=== PATIENT | female | born 1940 | race Caucasian/White ===

== ENCOUNTER 2016-10-08 18:09 | Emergency (ER) | payer MEDICARE ==
[2016-10-08] MEDS ORDERED: Diltiazem 25 MG/5 ML SDV IVPUSH ONE ×3 (19:32→21:25)
[2016-10-08] MEDS: Sodium Chloride 0.9% 10 ML Syringe FLUSH PRN ×2 (19:56→20:27)
[2016-10-08] MEDS ORDERED: Diltiazem 100 MG in Sodium Chloride 0.9% 100 ML IV SCH (20:30)
[2016-10-08 21:53] VITALS: BP 145/78
[2016-10-08] MEDS ORDERED: Potassium Chloride 10% 20 MEQ/15 ML Soln 15 ML UD Cup ONE (22:01)
--- NOTE | 2016-10-08 22:10 | EDM.PDOC ---
ED HPI NEURO - General Chief Complaint: Neuro Symptoms/Deficits Stated Complaint: DIZZINESS VIA [place] Time Seen by Provider: 10/08/16 19:18 Source: Reports: Patient History Limitations: Reports: No limitations - History of Present Illness INITIAL COMMENTS - FREE TEXT/NARRATIVE: Came in complaining of dizziness. This is been going on for about 3 days. She has actually fallen a couple of times. It seems like a syncope type of episode when she stands. She also noted that earlier today she felt a sudden pop in the back of her head and then began feeling really dizzy after that. She said sometimes her arms legs and now get but that's been going on a long time she had blood work last week her Dr. Mosqueda on since then Synthroid but all of those tests were okay. She denies any history of any type of of cardiac problems other than an occasional irregular heart rate. She denies any chest pain and denies any kind of palpitations. She did note that she's had a low potassium in the past - Related Data Allergies/ADRs: Allergies Allergy/AdvReac Type Severity Reaction Status Date / Time No Known Allergies Allergy Verified 10/16/15 09:10 Home Meds: Home Meds Aspirin [Adult Low Dose Aspirin EC] 81 mg PO DAILY 08/31/13 [History] Chlorthalidone 50 mg PO DAILY 08/31/13 [History] Cholecalciferol (Vitamin D3) [Vitamin D3] 2,000 units PO DAILY 08/31/13 [History ] Levothyroxine [Synthroid] 50 mcg PO ACBRK 08/31/13 [History] [place]-3 Fatty Acids [Fish Oil] 500 mg PO DAILY 08/31/13 [History] Omeprazole Magnesium 20 mg PO ASDIRECTED PRN 08/31/13 [History] Hydrocodone/Acetaminophen [Hydrocodon-Acetaminophen 5-325] 1 tab PO Q4H PRN 02/21 [History] Potassium Chloride 20 meq PO DAILY 10/14/15 [History] Past Medical History HEENT History: Reports: Cataract, Impaired vision Cardiovascular History: Reports: Hypertension, SOB on exertion Gastrointestinal History: Reports: Bowel obstruction, Cholelithiasis, Chronic constipation, Colon polyp, Gastritis, GERD, Hemorrhoids, Irritable bowel syndrome, Pancreatitis [employer] History: Reports: Dysfunctional uterine bleeding, Fibroids, Musculoskeletal History: Reports: Arthritis, Back pain, chronic, Neck pain, chronic, Osteoarthritis Endocrine/Metabolic History: Reports: Hypothyroidism, Vitamin D deficiency Hematologic History: Reports: Blood transfusion(s) - Infectious Disease History Infectious Disease History: Reports: Chicken pox, Measles, Mumps - Past Surgical History Head Surgeries/Procedures: Reports: None HEENT Surgical History: Reports: Tonsillectomy Cardiovascular Surgical History: Reports: None GI Surgical History: Reports: Cholecystectomy, Colonoscopy, Hernia, abdominal, Polypectomy Female Surgical History: Reports: Breast biopsy, D&C, Salpingo-oophorectomy, Tubal ligation Endocrine Surgical History: Reports: None Musculoskeletal Surgical History: Reports: Shoulder surgery Oncologic Surgical History: Reports: Biopsy of breast Dermatological Surgical History: Reports: Skin biopsy Social & Family History - Tobacco Use Smoking Status *Q: Never Smoker Years of Tobacco use: 50 Packs/Tins Daily: 1.5 Used Tobacco, but Quit: Yes Month Tobacco Last Used: JULY 2013 Second Hand Smoke Exposure: No - Caffeine Use Caffeine Use: Reports: None - Alcohol Use Days Per Week of Alcohol Use: 0 - Recreational Drug Use Recreational Drug Use: No ED ROS GENERAL - Review of Systems Review Of Systems: ROS reveals no pertinent complaints other than HPI. Constitutional: Reports: no symptoms HEENT: Reports: No symptoms, Vertigo Cardiovascular: Reports: No symptoms Endocrine: Reports: no symptoms GI/Abdominal: Reports: No symptoms : Reports: no symptoms Musculoskeletal: Reports: no symptoms Skin: Reports: no symptoms Neurological: Reports: dizziness Psychiatric: Reports: No symptoms Immunologic: Reports: no symptoms ED EXAM, NEURO - Physical Exam Exam: See Below Exam Limited By: No limitations General Appearance: alert, WD/WN, no apparent distress Eye Exam: bilateral eye: EOMI, PERRL Ears: normal external exam, normal TMs Nose: normal inspection, nasal flaring Throat/Mouth: Normal oropharynx Head Exam: atraumatic Neck: normal inspection Respiratory/Chest: lungs clear Cardiovascular: tachycardia, irregularly irregular GI/Abdominal: normal bowel sounds, soft, non tender Neurological: alert, normal mood/affect, normal dorsiflexion, CN II-XII intact, normal plantar flexion, normal reflexes, no motor/sensory deficits, oriented x 3 Back Exam: normal inspection Extremities: normal inspection Psychiatric: normal affect Skin Exam: Warm, Dry Course - Vital Signs Last Recorded V/S: Last Vital Signs Temp 37.5 C 10/08/16 21:52 Pulse 122 H 10/08/16 21:52 Resp 16 10/08/16 21:52 BP 145/78 H 10/08/16 21:52 Pulse Ox 93 L 10/08/16 21:52 - Orders/Labs/Meds Orders: Active Orders 24 hr Category Date Time Status EKG Documentation Completion [RC] ASDIRECTED Care 10/08/16 19:30 Active Chest 1V Frontal [CR] Urgent Exams 10/08/16 21:35 Taken Head wo Cont [CT] Stat Exams 10/08/16 19:29 Taken Diltiazem [Cardizem] 100 mg Med 10/08/16 20:30 Active Sodium Chloride 0.9% [Normal Saline] 100 ml IV TITRATE Potassium Chloride [Potassium Chloride Solution] Med 10/09/16 21:56 Once 40 meq PO ONETIME ONE Sodium Chloride 0.9% [Saline Flush] Med 10/08/16 19:29 Active 10 ml FLUSH ASDIRECTED PRN Saline Lock Insert [OM.PC] Urgent Oth 10/08/16 19:29 Ordered EKG 12 Lead [EK] Urgent Ther 10/08/16 19:29 Ordered Medication Orders Diltiazem HCl 100 mg/ Sodium (Chloride) 100 mls @ 5 mls/hr IV TITRATE KELLEY; 5 MG /HR PRN Reason: Protocol Last Admin: 10/08/16 20:39 Dose: 5 mg/hr, 5 mls/hr Potassium Chloride (Potassium Chloride Solution) 40 meq PO ONETIME ONE Stop: 10/09/16 21:57 Sodium Chloride (Saline Flush) 10 ml FLUSH ASDIRECTED PRN PRN Reason: Keep Vein Open Last Admin: 10/08/16 20:27 Dose: 10 ml Admin: 10/08/16 19:56 Dose: 10 ml Labs: Laboratory Tests 10/08/16 10/08/16 10/08/16 Range/Units 19:37 19:37 19:37 WBC 6.9 (4.5-11.0) K/uL RBC 5.31 (3.30-5.50) M/uL Hgb 16.2 H (12.0-15.0) g/dL Hct 48.0 (36.0-48.0) % MCV 90 (80-98) fL MCH 31 (27-31) pg MCHC 34 (32-36) % Plt Count 207 (150-400) K/uL Neut % (Auto) 67 H (36-66) % Lymph % (Auto) 23 L (24-44) % [place] % (Auto) 9 H (2-6) % Eos % (Auto) 1 L (2-4) % Baso % (Auto) 0 (0-1) % PT 10.6 (9.5-12.0) sec INR 1.00 (0.80-1.20) Sodium 143 (140-148) mmol/L Potassium 3.3 L (3.6-5.2) mmol/L Chloride 103 (100-108) mmol/L Carbon Dioxide 34 H (21-32) mmol/L Anion Gap 9.3 (5.0-14.0) mmol/L BUN 19 H (7-18) mg/dL Creatinine 0.9 (0.6-1.0) mg/dL Est Cr Clr Drug Dosing 42.35 mL/min Estimated GFR (MDRD) > 60 (>60) Glucose 106 (74-106) mg/dL Calcium 9.5 (8.5-10.1) mg/dL Total Bilirubin 0.4 (0.2-1.0) mg/dL AST 18 (15-37) U/L ALT 23 (12-78) U/L Alkaline Phosphatase 66 (46-116) U/L Troponin I (0.000-0.056) ng/mL Total Protein 7.7 (6.4-8.2) g/dL Albumin 4.1 (3.4-5.0) g/dL Globulin 3.6 H (2.3-3.5) g/dL Albumin/Globulin Ratio 1.1 L (1.2-2.2) 10/08/16 Range/Units 19:37 WBC (4.5-11.0) K/uL RBC (3.30-5.50) M/uL Hgb (12.0-15.0) g/dL Hct (36.0-48.0) % MCV (80-98) fL MCH (27-31) pg MCHC (32-36) % Plt Count (150-400) K/uL Neut % (Auto) (36-66) % Lymph % (Auto) (24-44) % [place] % (Auto) (2-6) % Eos % (Auto) (2-4) % Baso % (Auto) (0-1) % PT (9.5-12.0) sec INR (0.80-1.20) Sodium (140-148) mmol/L Potassium (3.6-5.2) mmol/L Chloride (100-108) mmol/L Carbon Dioxide (21-32) mmol/L Anion Gap (5.0-14.0) mmol/L BUN (7-18) mg/dL Creatinine (0.6-1.0) mg/dL Est Cr Clr Drug Dosing mL/min Estimated GFR (MDRD) (>60) Glucose (74-106) mg/dL Calcium (8.5-10.1) mg/dL Total Bilirubin (0.2-1.0) mg/dL AST (15-37) U/L ALT (12-78) U/L Alkaline Phosphatase (46-116) U/L Troponin I 0.287 H* (0.000-0.056) ng/mL Total Protein (6.4-8.2) g/dL Albumin (3.4-5.0) g/dL Globulin (2.3-3.5) g/dL Albumin/Globulin Ratio (1.2-2.2) Meds: Medications Generic Name Dose Route Start Last Admin Trade Name Freq PRN Reason Stop Dose Admin Diltiazem HCl 100 mg/ Sodium 100 mls @ 5 mls/hr 10/08/16 20:30 10/08/16 20:39 Chloride IV 5 mg/hr TITRATE KELLEY 5 mls/hr Protocol Administration 5 MG/HR Potassium Chloride 40 meq 10/09/16 21:56 Potassium Chloride Solution PO 10/09/16 21:57 ONETIME ONE Sodium Chloride 10 ml 10/08/16 19:29 10/08/16 20:27 Saline Flush FLUSH 10 ml ASDIRECTED PRN Administration Keep Vein Open Discontinued Medications Generic Name Dose Route Start Last Admin Trade Name Freq PRN Reason Stop Dose Admin Diltiazem HCl 15 mg 10/08/16 19:32 10/08/16 19:45 Diltiazem IVPUSH 10/08/16 19:33 15 mg NOW ONE Administration Diltiazem HCl 15 mg 10/08/16 20:16 10/08/16 20:19 Diltiazem IVPUSH 10/08/16 20:17 15 mg ONETIME ONE Administration Diltiazem HCl 15 mg 10/08/16 21:25 Diltiazem IVPUSH 10/08/16 21:26 ONETIME ONE - Radiology Interpretation Free Text/Narrative:: Head CT is normal. No evidence of any bleeding. Chest x-ray shows normal heart size there may be a little bit of atelectasis in the left base - Re-Assessments/Exams Free Text/Narrative Re-Assessment/Exam: 10/08/16 22:07 Monitor shows a rapid rhythm approximately 140-150 this appears to be atrial fibrillation. Occasionally she converts to a normal sinus rhythm briefly. At other times she converts to a sinus rhythm with bigeminy but this is transient and she goes right back into the A. fib and rapid ventricular response. An IV was established she was given a dose of 15 mg Cardizem but that didn't little therefore she was given a second 15 mg dose and that seemed to slow the heart rate down just a little bit. We started her on a Cardizem drip at 5 mg an hour. A CT scan of the head was done results were normal. Labs came back showing a troponin of 0.28. Also potassium 3.3. I spoke with Dr. Ortiz at [facility] and he accepted the patient. At that time we were planning to give it a third bolus and increase the drip to 10 mg at hour however she went back to bigeminy the rate appeared to be in the 30s so it was decided to go ahead and discontinue the 5 mg an hour drip. Patient did receive 40 mEq of KCl liquid here in the ER Departure - Departure Time of Disposition: 22:10 Disposition: DC/Tfer to Acute Hospital 02 Condition: serious Clinical Impression: Non-STEMI (non-ST elevated myocardial infarction), Atrial fibrillation with rapid ventricular response, Hypokalemia Forms: ED Department Discharge Additional Instructions: This patient is being transferred by ALS ambulance to [facility] - My Orders Last 24 Hours: My Active Orders 10/08/16 19:29 Head wo Cont [CT] Stat Sodium Chloride 0.9% [Saline Flush] 10 ml FLUSH ASDIRECTED PRN Saline Lock Insert [OM.PC] Urgent EKG 12 Lead [EK] Urgent 10/08/16 19:30 EKG Documentation Completion [RC] ASDIRECTED 10/08/16 20:30 Diltiazem [Cardizem] 100 mg Sodium Chloride 0.9% [Normal Saline] 100 ml IV TITRATE 10/08/16 21:35 Chest 1V Frontal [CR] Urgent 10/09/16 21:56 Potassium Chloride [Potassium Chloride Solution] 40 meq PO ONETIME ONE - Assessment/Plan Last 24 Hours: My Active Orders 10/08/16 19:29 Head wo Cont [CT] Stat Sodium Chloride 0.9% [Saline Flush] 10 ml FLUSH ASDIRECTED PRN Saline Lock Insert [OM.PC] Urgent EKG 12 Lead [EK] Urgent 10/08/16 19:30 EKG Documentation Completion [RC] ASDIRECTED 10/08/16 20:30 Diltiazem [Cardizem] 100 mg Sodium Chloride 0.9% [Normal Saline] 100 ml IV TITRATE 10/08/16 21:35 Chest 1V Frontal [CR] Urgent 10/09/16 21:56 Potassium Chloride [Potassium Chloride Solution] 40 meq PO ONETIME ONE
--- NOTE | 2016-10-09 09:14 | CR ---
Chest 1V Frontal HISTORY: Chest pain FINDINGS: Cardiac size and pulmonary vessels are normal. The lungs are clear. IMPRESSION: Negative AP chest.
[2016-10-09] MEDS ORDERED: Potassium Chloride 10% 20 MEQ/15 ML Soln 15 ML UD Cup PO ONE (21:56)
== END 2016-10-08 22:22 ==
LOC: JP.ED 18:09
DX: I21.4 Non-ST elevation (NSTEMI) myocardial infarction (principal); I48.91 Unspecified atrial fibrillation; E87.6 Hypokalemia; I10 Essential (primary) hypertension; K21.9 Gastro-esophageal reflux disease without esophagitis; E03.9 Hypothyroidism, unspecified; Z90.49 Acquired absence of other specified parts of digestive tract; Z90.710 Acquired absence of both cervix and uterus; Z98.51 Tubal ligation status; Z98.890 Other specified postprocedural states; Z79.82 Long term (current) use of aspirin; Z79.899 Other long term (current) drug therapy
CPT/HCPCS: 36415; 70450; 71010; 80053; 84484; 85025; 85610; 93005; 96374; 96376; 99285; A9270; J7030; J7050; 93010; J3490